=== PATIENT | female | born 1995 | race Caucasian/White ===

== ENCOUNTER 2021-07-06 14:06 | Emergency (ER) | payer OTHER ==
[~2021-07-06] VITALS: Ht 167.6 cm; Wt 58.1 kg
[2021-07-06] MEDS ORDERED: ZOLOFT50 MG PO (14:37)
[2021-07-06] MEDS ORDERED: CLONAZEPAM0.5 MG PO (14:38)
[2021-07-06] MEDS ORDERED: VISTARIL50 MG PO (14:39)
== END 2021-07-06 19:57 | disposition home or self-care (01) ==
LOC: ER 14:06
DX: R07.89 Other chest pain (principal); F41.8 Other specified anxiety disorders; R30.0 Dysuria

== ENCOUNTER 2023-08-20 10:46 | Emergency (ER) | payer OTHER ==
[~2023-08-20] VITALS: Ht 167.6 cm; Wt 58.5 kg
[~2023-08-20 10:46] MED LIST: CLONAZEPAM0.5 MG PO; VISTARIL50 MG PO; ZOLOFT50 MG PO
[2023-08-20 12:28] LABS: HEMATOCRIT 38.3 % (36.0-45.00); HEMOGLOBIN 13.5 g/dL (12.0-15.00); MEAN CELL VOLUME 86.9 fL (80.00-100.00); MEAN CORPUSCULAR HEMOGLOBIN 30.6 pg (27.00-32.0); MEAN CORPUSCULAR HGB CONC 35.3 g/dl (32.0-36.0); PLATELET COUNT 261 K/uL (150-450); RED BLOOD COUNT 4.41 M/uL (4.00-6.00); RED CELL DISTRIBUTION WIDTH 13.2 % (11.5-14.5)
[2023-08-20 12:34] LABS: URINE APPEARANCE Cloudy; URINE BILIRRUBIN Negative (NEGATIVE); URINE BLOOD Negative; URINE COLOR Yellow; URINE GLUCOSE Negative (NEGATIVE); URINE LEUKOCYTE Small; URINE NITRATE Positive; URINE PROTEIN Negative (NEGATIVE); URINE UROBILINOGEN 0.2 E.U./dl
[2023-08-20 12:38] LABS: URINE EPITHELIAL CELLS 88.5 uL (0.0-38.8); URINE RBC 7.6 uL (0.0-20.8); URINE WBC 70.1 uL (0.0-23.2)
== END 2023-08-20 14:59 | disposition home or self-care (01) ==
LOC: ER 10:46
DX: R30.0 Dysuria (principal); R10.31 Right lower quadrant pain

== ENCOUNTER 2024-08-25 03:59 | Emergency (ER) | payer OTHER ==
[~2024-08-25] VITALS: Ht 167.6 cm; Wt 60.8 kg
[2024-08-25] MEDS ORDERED: KETOROLAC TROMETHAMINE 10 MG TABLET PO STA (05:28)
[2024-08-25] MEDS ORDERED: DIPHENHYDRAMINE HCL 12.5 MG/5 ML BLIST.PACK PO STA (05:29)
[2024-08-25 06:16] LABS: HEMATOCRIT 37.1 % (36.0-45.00); HEMOGLOBIN 13.1 g/dL (12.0-15.00); MEAN CELL VOLUME 86.6 fL (80.00-100.00); MEAN CORPUSCULAR HEMOGLOBIN 30.6 pg (27.00-32.0); MEAN CORPUSCULAR HGB CONC 35.4 g/dl (32.0-36.0); PLATELET COUNT 202 K/uL (150-450); RED BLOOD COUNT 4.29 M/uL (4.00-6.00); RED CELL DISTRIBUTION WIDTH 13.7 % (11.5-14.5)
[2024-08-25 06:23] LABS: URINE APPEARANCE Cloudy; URINE BILIRRUBIN Negative (NEGATIVE); URINE BLOOD Moderate; URINE COLOR Dark Yellow; URINE GLUCOSE Negative (NEGATIVE); URINE LEUKOCYTE Trace; URINE NITRATE Negative; URINE PROTEIN 30 (NEGATIVE)
[2024-08-25 06:27] LABS: URINE BACTERIA 2038.6 uL (0.0-1933); URINE EPITHELIAL CELLS 135.4 uL (0.0-38.8); URINE RBC 45.6 uL (0.0-20.8); URINE WBC 24.8 uL (0.0-23.2)
[2024-08-25 06:55] LABS: URINE KETONE 80 (NEGATIVE)
[2024-08-25] MEDS ORDERED: OSEL75CA PO (07:21)
[2024-08-25] MEDS ORDERED: DOLOGESIC-DF 51 EACH PO (07:21)
[2024-08-25] MEDS ORDERED: [UNRECOGNIZED DRUG - OTHER] PO (07:21)
== END 2024-08-25 07:24 | disposition home or self-care (01) ==
LOC: ER 04:01
PROVIDERS: General Practice
DX: J10.1 Influenza due to other identified influenza virus with other respiratory manifestations (principal); Z20.822 Contact with and (suspected) exposure to COVID-19